=== PATIENT | male | born 1935 | race Caucasian/White ===

== ENCOUNTER 2019-05-21 11:54 | Emergency (ER) | payer MEDICARE, OTHER ==
[~2019-05-21] VITALS: Ht 167.6 cm; Wt 70.0 kg
[2019-05-21 11:56] VITALS: BP 153/73
== END 2019-05-21 13:07 | disposition home or self-care (01) ==
LOC: ED 12:50
DX: S40.012A Contusion of left shoulder, initial encounter (principal); R42 Dizziness and giddiness; R11.0 Nausea; I10 Essential (primary) hypertension; W18.30XA Fall on same level, unspecified, initial encounter; Y93.89 Activity, other specified; Y92.009 Unspecified place in unspecified non-institutional (private) residence as the place of occurrence of the external cause; Y99.8 Other external cause status
CPT/HCPCS: 93005; 99284